=== PATIENT | male | born 1995 | race Caucasian/White ===

== ENCOUNTER 2019-01-25 11:39 | Emergency (ER) | payer SELFPAY ==
--- NOTE | 2019-01-25 11:59 | ED ---
Upper Extremity Pain - HPI Summary HPI Summary: A 23 y/o M presents to ED with c/o R hand pain onset two days ago. He says he punched a wall several time. His pain is 10 out of 10. Associated sx: ecchymosis and swelling to R hand, limited ROM to R hand. He is able to feel sensation in his finger tips. - History of Current Complaint Chief Complaint: EDExtremityUpper Stated Complaint: POSS BROKEN RT HAND PER PT Time Seen by Provider: 01/25/19 11:52 Hx Obtained From: Patient Mechanism Of Injury: Blunt Trauma, Direct Blow Onset/Duration: Started Days Ago, Traumatic, Still Present Timing: Constant Severity Initially: Severe Severity Currently: Severe - 10 out of 10 Pain Location: Hand - R Associated Signs & Symptoms: Positive: Swelling, Bruising, Other - deccreased ROM of R hand - Allergies/Home Medications Allergies/Adverse Reactions: Allergies Allergy/AdvReac Type Severity Reaction Status Date / Time No Known Allergies Allergy Verified 01/25/19 11:49 Home Medications: Home Medications NK [No Home Medications Reported] 01/25/19 [History Confirmed 01/25/19] PMH/Surg Hx/FS Hx/Imm Hx Previously Healthy: Yes Respiratory History: Reports: Hx Asthma Neurological History: Denies: Hx Dementia Infectious Disease History: No Infectious Disease History: Denies: History Other Infectious Disease, Traveled Outside the [place] in Last 30 Days - Family History Known Family History: Positive: None Negative: Cardiac Disease, Hypertension, Diabetes - Social History Occupation: Student Lives: With Family Alcohol Use: None Hx Substance Use: No Substance Use Type: Reports: None Hx Tobacco Use: Yes Smoking Status (MU): Light Every Day Tobacco Smoker Type: Cigarettes Review of Systems Musculoskeletal: Other - pos: R hand pain and swelling Positive: Decreased ROM - R hand Skin: Other - pos: R hand bruising All Other Systems Reviewed And Are Negative: Yes Physical Exam - Summary Physical Exam Summary: VITAL SIGNS: Reviewed. GENERAL: Patient is a well-developed and nourished MALE who is lying comfortable in the stretcher. Patient is not in any acute respiratory distress. HEAD AND FACE: No signs of trauma. No ecchymosis, hematomas or skull depressions. No sinus tenderness. EYES: PERRLA, EOMI x 2, No injected conjunctiva, no nystagmus. EARS: Hearing grossly intact. Ear canals and tympanic membranes are within normal limits. MOUTH: Oropharynx within normal limits. NECK: Supple, trachea is midline, no adenopathy, no JVD, no carotid bruit, no c- spine tenderness, neck with full ROM. CHEST: Symmetric, no tenderness at palpation LUNGS: Clear to auscultation bilaterally. No wheezing or crackles. CVS: Regular rate and rhythm, S1 and S2 present, no murmurs or gallops appreciated. ABDOMEN: Soft, non-tender. No signs of distention. No rebound, no guarding, and no masses palpated. Bowel sounds are normal. EXTREMITIES: Decreased range of motion in R hand secondary to swelling and tenderness along the ventral aspect of the R hand, otherwise FROM in all major joints, no edema, no cyanosis or clubbing. Neuromuscular intact. NEURO: Alert and oriented x 3. No acute neurological deficits. Speech is normal and follows commands. SKIN: Dry and warm Triage Information Reviewed: Yes Vital Signs On Initial Exam: Initial Vitals Temp Pulse Resp BP Pulse Ox 99.5 F 87 14 133/77 98 01/25/19 11:46 01/25/19 11:46 01/25/19 11:46 01/25/19 11:46 01/25/19 11:46 Vital Signs Reviewed: Yes Diagnostics - Vital Signs Vital Signs Temp Pulse Resp BP Pulse Ox 01/25/19 11:46 99.5 F 87 14 133/77 98 - Laboratory Lab Statement: Any lab studies that have been ordered have been reviewed, and results considered in the medical decision making process. - Radiology R HAND Radiology Interpretation Completed By: Radiologist Summary of Radiographic Findings: IMPRESSION: #. Mild dorsal soft tissue swelling. No subcutaneous emphysema or conspicuous foreign body. #. Negative for fracture or malalignment. Preserved joint spaces. ED provider has reviewed this report. Re-Evaluation - Re-Evaluation 1 Re-Evaluation Time: 13:15 Change: Unchanged Comment: Discussing XR results with pt and plan to D/C. Course/Dx - Course Assessment/Plan: This patient is a 23-year-old male who presents to the emergency room with a chief complaint of right hand pain. X-ray of the right hand impression: Mild dorsal soft tissue swelling. No subcutaneous emphysema or conspicuous foreign body. Negative for fracture or malalignment. In the ED course, the patient was given ibuprofen for the pain. The patient was placed in a wrist splint and discharged home with follow-up with PCP. - Diagnoses Provider Diagnoses: Hand contusion Discharge - Sign-Out/Discharge Documenting (check all that apply): Patient Departure - D/C Patient Received Moderate/Deep Sedation with Procedure: No - Discharge Plan Condition: Stable Disposition: HOME Patient Education Materials: Hand Sprain (ED) Referrals: Vivi Jara MD [Medical Doctor] - 3 Days Additional Instructions: FOLLOW UP WITH YOUR PRIMARY CARE PROVIDER WITHIN 3 DAYS. RETURN TO THE ED FOR ANY WORSENING OR NEW SYMPTOMS. - Billing Disposition and Condition Condition: STABLE Disposition: Home - Attestation Statements Document Initiated by Luceroibe: Yes Documenting Scribe: Radha Oliver Provider For Whom Juliano is Documenting (Include Credential): Dr. Jj Luke MD Scribe Attestation: Radha Irving, scribed for Dr. Jj Luke MD on 01/25/19 at 1838. Scribe Documentation Reviewed: Yes Provider Attestation: The documentation as recorded by the Radha juares accurately reflects the service I personally performed and the decisions made by me, Dr. Jj Luke MD Status of Scribe Document: Viewed
[2019-01-25] MEDS ORDERED: Ibuprofen TAB* 800 MG PO ONE (13:11)
[2019-01-25 13:41] VITALS: BP 122/61
== END 2019-01-25 13:40 | disposition home or self-care (01) ==
LOC: ED 11:39
DX: S60.221A Contusion of right hand, initial encounter (principal); W22.09XA Striking against other stationary object, initial encounter; J45.909 Unspecified asthma, uncomplicated; F17.210 Nicotine dependence, cigarettes, uncomplicated
CPT/HCPCS: 99282

== ENCOUNTER 2019-10-20 08:41 | Emergency (ER) | payer OTHER ==
--- NOTE | 2019-10-20 09:04 | ED ---
HPI Chest Pain - HPI Summary HPI Summary: This patient is a 24 year old M presenting to ED with a chief complaint of left- sided rib pain when breathing since yesterday. The pain started when patient was sitting at work. Patient describes the pain as a sharp pain. He states the pain is worst when coughing and that he had trouble sleeping last night. Patient reports mild shortness of breath but only because it hurts to breathe. Patient had the flu last week and still has head congestion and cough. His flu symptoms began on 10/14/18 with fever and vomiting, but those have since resolved. The patient rates the pain 7/10 in severity. Symptoms aggravated by coughing, bending over, breathing too hard, and movement. Symptoms alleviated by nothing. - History of Current Complaint Chief Complaint: EDChestWallPain Time Seen by Provider: 10/20/19 08:55 Hx Obtained From: Patient Onset/Duration: Started Days Ago - Yesterday, Still Present Timing: Constant Initial Severity: Moderate Current Severity: Moderate Pain Intensity: 7 Pain Scale Used: 0-10 Numeric Chest Pain Location: Left Anterior Character: Sharp/Stabbing Aggravating Factor(s): Other: - Coughing, bending over, breathing too hard, movement Alleviating Factor(s): Nothing Associated Signs and Symptoms: Positive: Shortness of Breath - Only because it hurts to breathe, Cough, Other: - Congestion - Allergy/Home Medications Allergies/Adverse Reactions: Allergies Allergy/AdvReac Type Severity Reaction Status Date / Time No Known Allergies Allergy Verified 10/20/19 08:47 Home Medications: Home Medications D-Methorphan/PE/Acetaminophen [Daytime Cold-Flu Relief Softgl] 1 each PO Q8H [History Confirmed 10/20/19] Dm/Acetaminophen/Doxylamine [Night Time Multi-Symptom] 1 cap PO BEDTIME [History Confirmed 10/20/19] PMH/Surg Hx/FS Hx/Imm Hx Respiratory History: Reports: Hx Asthma Neurological History: Denies: Hx Dementia - Surgical History Surgery Procedure, Year, and Place: Denies Infectious Disease History: No Infectious Disease History: Denies: History Other Infectious Disease, Traveled Outside the [place] in Last 30 Days - Family History Known Family History: Positive: None Negative: Cardiac Disease, Hypertension, Diabetes - Social History Alcohol Use: None Hx Substance Use: No Substance Use Type: Reports: None Hx Tobacco Use: Yes Smoking Status (MU): Light Every Day Tobacco Smoker Type: Cigarettes Review of Systems ENT: Other - Congestion Positive: Chest Pain Positive: Shortness Of Breath, Cough All Other Systems Reviewed And Are Negative: Yes Physical Exam - Summary Physical Exam Summary: Appearance: The patient is well-nourished in no acute distress and in no acute pain. Skin: The skin is warm and dry, and skin color reflects adequate perfusion. HEENT: The head is normocephalic and atraumatic. The pupils are equal and reactive. The conjunctivae are clear and without drainage. Nares are patent and without drainage. Mouth reveals moist mucous membranes, and the throat is without erythema and exudate. The external ears are intact. The ear canals are patent and without drainage. The tympanic membranes are intact. Neck: The neck is supple with full range of motion and non-tender. There are no carotid bruits. There is no neck vein distension. Respiratory: Chest is non-tender. Lungs are clear to auscultation and breath sounds are symmetrical and equal. Cardiovascular: Heart is regular rate and rhythm. There is no murmur or rub auscultated. There is no peripheral edema and pulses are symmetrical and equal. Abdomen: The abdomen is soft and non-tender. There are normal bowel sounds heard in all four quadrants and there is no organomegaly palpated. Musculoskeletal: There is no back tenderness noted. Extremities are non-tender with full range of motion. There is good capillary refill. There is no peripheral edema or calf tenderness elicited. Neurological: Patient is alert and oriented to person, place and time. The patient has symmetrical motor strength in all four extremities. Cranial nerves are grossly intact. Deep tendon reflexes are symmetrical and equal in all four extremities. Psychiatric: The patient has an appropriate affect and does not exhibit any anxiety or depression. Triage Information Reviewed: Yes Vital Signs On Initial Exam: Initial Vitals Temp Pulse Resp BP Pulse Ox 99.5 F 85 19 130/81 98 10/20/19 08:43 10/20/19 08:43 10/20/19 08:43 10/20/19 08:43 10/20/19 08:43 Vital Signs Reviewed: Yes Procedures - Sedation Patient Received Moderate/Deep Sedation with Procedure: No Diagnostics - Vital Signs Vital Signs Temp Pulse Resp BP Pulse Ox 10/20/19 08:43 99.5 F 85 19 130/81 98 - Laboratory Result Diagrams: 10/20/19 10:13 10/20/19 10:13 Lab Statement: Any lab studies that have been ordered have been reviewed, and results considered in the medical decision making process. - Radiology CXR Radiology Interpretation Completed By: Radiologist Summary of Radiographic Findings: NO ACTIVE CARDIOPULMONARY DISEASE. Dr. Garcia has reviewed this radiology report. - CT Chest CTA CT Interpretation Completed By: Radiologist Summary of CT Findings: PULMONARY EMBOLI OF THE SEGMENTAL BRANCHES OF THE RIGHT LOWER LOBE. Dr. Garcia has reviewed this radiology report. Re-Evaluation - Re-Evaluation First Eval Re-Evaluation Time: 11:08 Comment: Patient has positive D-dimer, informed patient. Patient agrees to CTA. Second Eval Re-Evaluation Time: 12:25 Comment: Discussed CTA results and Dr. Moran's recommendations with patient. Patient agrees to start Eliquis and see product tester fiberglass as an outpatient. Patient will be discharged home with dx of pulmonary embolism. Chest Pain Course/Dx - Course Course Of Treatment: Mr. Villalobos presented with a pleuritic left chest pain in the context of a recent URI. Chest x-ray was unremarkable and continued to complain pain of significant pain. Labs are obtained and were generally unremarkable. A d-dimer was very slightly elevated at 250 and he was continuing to complain of worsening pain. I obtained a d-dimer because it a low suspicion for PE but given the fact that he continued to have pain and his d -dimer was slightly elevated I obtained a CTA. Surprisingly the showed a segmental right lower lobe pulmonary embolism. I spoke with Dr. Moran who agreed to follow-up the patient and recommended starting Eliquis. He remained stable here and I recommended anti-inflammatories for pain. - Diagnoses Provider Diagnoses: Pulmonary embolism - Provider Notifications Discussed Care Of Patient With: Jeet Doherty Time Discussed With Above Provider: 11:52 Instructed by Provider To: Other - Discussed patient's CTA with Dr. Doherty, radiologist, who reports patient has PE. At 1218, discussed patient case with Dr. Moran, product tester fiberglass, who recommended starting the patient on Eliquis and then discharging for follow-up outpatient hypercoagulation studies. Discharge ED - Sign-Out/Discharge Documenting (check all that apply): Patient Departure - Discharge - Discharge Plan Condition: Stable Disposition: HOME Prescriptions: Apixaban* [Eliquis*] 5 mg PO BID #56 tab Patient Education Materials: Pulmonary Embolism (ED) Referrals: Care [facility] [Outside] - 3 Days Adalgisa Moran MD [Medical Doctor] - 3 Days Additional Instructions: Please follow-up with your primary care physician and with Dr. Moran ( product tester fiberglass) in 2-3 days. PLEASE RETURN TO THE ER FOR WORSENING OR CHANGING SYMPTOMS. It was a pleasure taking care of you today. - Billing Disposition and Condition Condition: STABLE Disposition: Home - Attestation Statements Document Initiated by Scribe: Yes Documenting Scribe: Francisco Grayson Provider For Whom Juliano is Documenting (Include Credential): Nacho Garcia MD Scribe Attestation: IFrancisco, scribed for Nacho Garcia MD on 10/20/19 at 1720. Scribe Documentation Reviewed: Yes Provider Attestation: The documentation as recorded by the Francisco juares accurately reflects the service I personally performed and the decisions made by me, Nacho Garcia MD Status of Scribe Document: Viewed
[2019-10-20] MEDS ORDERED: Ibuprofen TAB* 600 MG PO ONE (10:02)
[2019-10-20] MEDS ORDERED: Ketorolac INJ* 30 MG/ML 1 ML VIAL IM ONE (10:03)
[2019-10-20 10:19] LABS: ABS Basophils 0.1 10^3/ul (0-0.2); ABS Lymphocytes 1.4 10^3/ul (1.0-4.8); ABS Monocytes 0.9 10^3/ul (0-0.8); ABS Neutrophils 5.2 10^3/ul (1.5-7.7); Eosinophil % 0.6 %; Hematocrit 43 % (42-52); Hemoglobin 14.9 g/dL (14.0-18.0); Mean Corpuscular HGB Conc 34 g/dL (31-36); Mean Corpuscular Hemoglobin 33 pg (27-31); Mean Corpuscular Volume 95 fL (80-94); Mean Platelet Volume 8.1 fL (7.4-10.4); Platelet Count 200 10^3/uL (150-450); Red Blood Count 4.58 10^6 /uL (4.18-5.48); Red Cell Distribution Width 13 % (10-15); White Blood Count 7.6 10^3/uL (3.5-10.8)
[2019-10-20 10:37] LABS: Albumin/Globulin Ratio 1.5 (1-3); BUN/Creatinine Ratio 12.1 (8-20); C Reactive Protein 22.11 mg/L (<8.01); Calcium 9.1 mg/dL (8.6-10.3); EGFR African American 182.6 (>60); EGFR Non-African American 150.9 (>60); Globulin 2.7 g/dL (2-4); Potassium 4.7 mmol/L (3.5-5.0); Total Bilirubin 0.3 mg/dL (0.2-1.0); Total Protein 6.7 g/dL (6.4-8.9)
[2019-10-20] MEDS ORDERED: Iohexol 350* (CONTRAST) 500 ML MDV IV ONE (11:18)
[2019-10-20] MEDS ORDERED: Apixaban* 5 MG TAB PO SCH (13:00)
[2019-10-20 13:05] VITALS: BP 133/83
== END 2019-10-20 11:30 | disposition home or self-care (01) ==
LOC: ED 08:41
DX: I26.99 Other pulmonary embolism without acute cor pulmonale (principal); J45.909 Unspecified asthma, uncomplicated; F17.210 Nicotine dependence, cigarettes, uncomplicated
CPT/HCPCS: 36415; 71046; 71275; 80053; 84484; 85025; 85379; 86140; 96372; 99284; J1885; Q9967

== ENCOUNTER → 2019-10-21 09:17 | Emergency (ER) | payer OTHER ==
[~2019-10-21 09:17] MED LIST: HYDROcodone/ACETAMIN 5-325 MG* 1 TAB PO ONE
[2019-10-21 10:25] LABS: ABS Basophils 0.1 10^3/ul (0-0.2); ABS Lymphocytes 1.6 10^3/ul (1.0-4.8); ABS Neutrophils 5.8 10^3/ul (1.5-7.7); Eosinophil % 0.5 %; Hematocrit 42 % (42-52); Hemoglobin 14.6 g/dL (14.0-18.0); Lymphocyte % 18.4 %; Mean Corpuscular HGB Conc 35 g/dL (31-36); Mean Corpuscular Hemoglobin 33 pg (27-31); Mean Corpuscular Volume 94 fL (80-94); Mean Platelet Volume 8.2 fL (7.4-10.4); Platelet Count 203 10^3/uL (150-450); Red Blood Count 4.47 10^6 /uL (4.18-5.48); Red Cell Distribution Width 13 % (10-15); White Blood Count 8.6 10^3/uL (3.5-10.8)
[2019-10-21 10:40] LABS: BUN/Creatinine Ratio 7.8 (8-20); Calcium 9.1 mg/dL (8.6-10.3); EGFR African American 152.9 (>60); EGFR Non-African American 126.3 (>60); Potassium 4.2 mmol/L (3.5-5.0)
--- NOTE | 2019-10-21 10:40 | ED ---
HPI Chest Pain - HPI Summary HPI Summary: Patient is a 24 y/o M presenting to the ED for a chief complaint of left anterior chest pain that began 2 days ago. Patient states he was seen at [facility] on 10/20/19 for the chest pain and diagnosed with a pulmonary embolism. He was discharged with a prescription for Eliquis. The chest pain is described as a stabbing sensation. Patient denies bilateral LE pain or edema. He has been taking Tylenol for the chest pain without relief. Movement and deep breaths worsen the chest pain. He notes using e-cigarettes and is concerned his e- cigarette use could be worsening his chest pain. Any recent long distance travel or recent surgeries. He denies any FMHx of blood clots. Any significant PMHx is denied. PSHx is significant for tonsillectomy. He denies alcohol or drug use. - History of Current Complaint Chief Complaint: EDChestWallPain Time Seen by Provider: 10/21/19 10:21 Hx Obtained From: Patient Onset/Duration: Started Days Ago - 2 days ago, Atraumatic, Still Present Timing: Constant Initial Severity: Severe Current Severity: Severe Pain Intensity: 10 Pain Scale Used: 0-10 Numeric Chest Pain Location: Left Anterior Chest Pain Radiates: No Character: Sharp/Stabbing Aggravating Factor(s): Movement, Deep Breaths Alleviating Factor(s): Nothing Associated Signs and Symptoms: Positive: Chest Pain. Negative: Edema - Bilateral LE - Allergy/Home Medications Allergies/Adverse Reactions: Allergies Allergy/AdvReac Type Severity Reaction Status Date / Time No Known Allergies Allergy Verified 10/21/19 09:24 PMH/Surg Hx/FS Hx/Imm Hx Previously Healthy: Yes Endocrine/Hematology History: Denies: Hx Diabetes Cardiovascular History: Reports: Hx Embolism Denies: Hx Hypertension Respiratory History: Reports: Hx Asthma, Hx Pulmonary Embolism History: Denies: Hx Renal Disease Sensory History: Denies: Hx Legally Blind, Hx Deafness Opthamlomology History: Denies: Hx Legally Blind EENT History: Denies: Hx Deafness Neurological History: Denies: Hx Dementia - Surgical History Surgical History: None Surgery Procedure, Year, and Place: Denies Infectious Disease History: No Infectious Disease History: Denies: History Other Infectious Disease, Traveled Outside the [place] in Last 30 Days - Family History Known Family History: Negative: Cardiac Disease, Hypertension, Diabetes, Other - Negative blood clots - Social History Occupation: Employed Full-time Alcohol Use: None Hx Substance Use: No Substance Use Type: Reports: None Hx Tobacco Use: Yes Smoking Status (MU): Light Every Day Tobacco Smoker Type: Cigarettes, eCigarettes Review of Systems Positive: Chest Pain - Left anterior Negative: Myalgia - Bilateral LE, Edema - Bilateral LE All Other Systems Reviewed And Are Negative: Yes Physical Exam - Summary Physical Exam Summary: Constitutional: Well-developed, Well-nourished, Alert. (-) Distressed Skin: Warm, Dry HENT: Normocephalic; Atraumatic Eyes: Conjunctiva normal Neck: Musculoskeletal ROM normal neck. (-) JVD, (-) Stridor, (-) Tracheal deviation Cardio: Rhythm regular, rate normal, Heart sounds normal; Intact distal pulses; Radial pulses are 2+ and symmetric. (-) Murmur Pulmonary/Chest wall: Effort normal. (-) Respiratory distress, (-) Wheezes, (-) Rales Abd: Soft, (-) tenderness, (-) Distension, (-) Guarding, (-) Rebound Musculoskeletal: (-) Edema. Good pulses bilaterally in radius, No calf tenderness, No venous cords, No pain with dorsiflexion of foot. Left-sided chest wall tenderness. Lymph: (-) Cervical adenopathy Neuro: Alert, Oriented x3 Psych: Mood and affect Normal Triage Information Reviewed: Yes Vital Signs On Initial Exam: Initial Vitals Temp Pulse Resp BP Pulse Ox 99.4 F 82 16 110/74 99 10/21/19 09:20 10/21/19 09:20 10/21/19 09:20 10/21/19 09:20 10/21/19 09:20 Vital Signs Reviewed: Yes Procedures - Sedation Patient Received Moderate/Deep Sedation with Procedure: No Diagnostics - Vital Signs Vital Signs Temp Pulse Resp BP Pulse Ox 10/21/19 09:20 99.4 F 82 16 110/74 99 - Laboratory Lab Results: Lab Results 10/21/19 Range/Units 10:14 WBC 8.6 (3.5-10.8) 10^3/uL RBC 4.47 (4.18-5.48) 10^6 /uL Hgb 14.6 (14.0-18.0) g/dL Hct 42 (42-52) % MCV 94 (80-94) fL MCH 33 H (27-31) pg MCHC 35 (31-36) g/dL RDW 13 (10-15) % Plt Count 203 (150-450) 10^3/uL MPV 8.2 (7.4-10.4) fL Neut % (Auto) 68.0 % Lymph % (Auto) 18.4 % Lamb % (Auto) 12.2 % Eos % (Auto) 0.5 % Baso % (Auto) 0.9 % Absolute Neuts (auto) 5.8 (1.5-7.7) 10^3/ul Absolute Lymphs (auto) 1.6 (1.0-4.8) 10^3/ul Absolute Monos (auto) 1.0 H (0-0.8) 10^3/ul Absolute Eos (auto) 0.0 (0-0.6) 10^3/ul Absolute Basos (auto) 0.1 (0-0.2) 10^3/ul Absolute Nucleated RBC 0.0 10^3/ul Nucleated RBC % 0.0 Result Diagrams: 10/21/19 10:14 10/21/19 10:14 Lab Statement: Any lab studies that have been ordered have been reviewed, and results considered in the medical decision making process. - EKG 10:40 Cardiac Rate: NL - 65 BPM EKG Rhythm: Sinus Rhythm ST Segment: Normal Ectopy: None Summary of EKG Findings: EKG at 10:40 shows normal sinus rhythm with 65 BPM, no ischemic changes, no STEMI. Reviewed and interpreted by Dr. Corbin. Chest Pain Course/Dx - Course Course Of Treatment: Patient is here 1 day after being diagnosed with a PE. Patient was seen here yesterday where he had a positive d-dimer and a subsequent CTA which showed a right-sided PE. Patient had no evidence of heart strain on exam yesterday. Patient is here with slightly worse pain. Patient is not tachycardic and not hypoxic on exam. Patient's overall well-appearing. Patient has no abdominal pain and does have some tenderness in his left chest wall. Patient had an EKG which showed no abnormality. Patient had a troponin and BMP which were negative. Patient has evidence of worsening heart strain. Patient is likely suffering from pain related to his PE. Patient was started on tramadol and encouraged to call Dr. Moran immediately after discharge today. - Diagnoses Provider Diagnoses: Pulmonary embolism, Chest pain Discharge ED - Sign-Out/Discharge Documenting (check all that apply): Patient Departure - Discharge - Discharge Plan Condition: Stable Disposition: HOME Prescriptions: traMADol TAB* [Ultram*] 50 mg PO Q8HR PRN #12 tab MDD 3 tablets PRN Reason: Pain - Severe Patient Education Materials: Chest Pain (ED), Pulmonary Embolism (ED) Referrals: Care [facility] [Outside] Additional Instructions: PLEASE RETURN TO EMERGENCY DEPARTMENT FOR SEVERE TROUBLE BREATHING, YOU PASS OUT , SEVERE CHEST PAIN, OR ANY NEW OR WORSENING SYMPTOMS. Please follow up with your primary care physician and Dr. Moran. Call Dr. Moran today to make an appointment. Please make all follow-ups in 1-3 days unless I advise you otherwise. Take your medications as prescribed. Take Tylenol for pain. - Billing Disposition and Condition Condition: STABLE Disposition: Home - Attestation Statements Document Initiated by Juliano: Yes Documenting Luceroibe: Mora Naranjo Provider For Whom Juliano is Documenting (Include Credential): Cyrus Corbin MD Scribe Attestation: IMora, scribed for Cyrus Corbin MD on 10/21/19 at 1055. Scribe Documentation Reviewed: Yes Provider Attestation: The documentation as recorded by the Mora juares accurately reflects the service I personally performed and the decisions made by me, Cyrus Corbin MD Status of Scribe Document: Viewed
[2019-10-21 12:02] VITALS: BP 107/73
== END | disposition home or self-care (01) ==
LOC: ED 09:17
DX: I26.99 Other pulmonary embolism without acute cor pulmonale (principal); Z79.01 Long term (current) use of anticoagulants; R07.89 Other chest pain; F17.210 Nicotine dependence, cigarettes, uncomplicated; F17.290 Nicotine dependence, other tobacco product, uncomplicated
CPT/HCPCS: 36415; 80048; 83880; 84484; 85025; 93005; 99283